=== PATIENT | female | born 1980 | race Caucasian/White ===

== ENCOUNTER 2018-04-18 11:15 | Inpatient (IN) | payer OTHER ==
[~2018-04-18] VITALS: Ht 167.6 cm; Wt 2.7 kg
[2018-04-24] MEDS ORDERED: PRENATAL PLUS1 EAC2 PO (11:16)
== END 2018-04-27 11:38 | disposition home or self-care (01) | DRG 788 ==
LOC: OB/GYN 11:15 → O/R 04-24 10:40 → OB/GYN 04-24 11:15
PROVIDERS: ADMIT Obstetrics & Gynecology
PROC: 4A1HXCZ Monitoring of Products of Conception, Cardiac Rate, External Approach (ICD-10-PCS; 2018-04-24)
PROC: 10D00Z1 Extraction of Products of Conception, Low, Open Approach (ICD-10-PCS; principal; 2018-04-24 08:30)
DX: O34.211 Maternal care for low transverse scar from previous cesarean delivery (principal); O75.82 Onset (spontaneous) of labor after 37 completed weeks of gestation but before 39 completed weeks gestation, with delivery by (planned) cesarean section; O82 Encounter for cesarean delivery without indication; Z3A.38 38 weeks gestation of pregnancy; Z37.0 Single live birth